=== PATIENT | female | born 1990 | race Caucasian/White ===

== ENCOUNTER 2017-03-20 14:11 | Emergency (ER) | payer BC, OTHER ==
[~2017-03-20] VITALS: Ht 170.2 cm; Wt 61.7 kg
[~2017-03-20 14:11] MED LIST: CYCL5TAB PO; NAPR550 PO; Z.0.NO CURRENT MEDS
[2017-03-20 14:33] VITALS: BP 129/88; PULSE 57; RESP 18; TEMP 98.2; O2SAT 99
[2017-03-20] MEDS ORDERED: FISHCAP4 PO (14:56)
[2017-03-20] MEDS ORDERED: MULT1TAB84 PO (14:56)
[2017-03-20] MEDS ORDERED: ONDANSETRON HCL 4 MG/2 ML VIAL IVP ONE (15:00)
[2017-03-20] MEDS ORDERED: FAMOTIDINE 20 MG/2 ML VIAL IV PUSH ONE (15:00)
[2017-03-20] MEDS ORDERED: SODIUM CHLOR 0.9% 1000 ML INJ 1,000 ML IV ONE ×2 (15:00)
[2017-03-20 15:17] LABS: AUTOMATED NEUTROPHIL # 9.9 TH/MM3 (1.8-7.7); BASOPHIL # 0.1 TH/MM3 (0-0.2); BASOPHIL % 1.1 % (0.0-2.0); HEMATOCRIT 41.3 % (35.0-46.0); LYMPHOCYTE # 0.7 TH/MM3 (1.0-4.8); MEAN CELL VOLUME 87.7 FL (80.0-100.0); MEAN CORPUSCULAR HEMOGLOBIN 29.5 PG (27.0-34.0); MEAN CORPUSCULAR HGB CONC 33.6 % (32.0-36.0); MONO % 1.8 % (0.0-8.0); NEUT % 91.1 % (16.0-70.0); PLATELET COUNT 206 TH/MM3 (150-450); RED BLOOD COUNT 4.71 MIL/MM3 (4.00-5.30); RED CELL DISTRIBUTION WIDTH 11.5 % (11.6-17.2); WHITE BLOOD COUNT 10.9 TH/MM3 (4.0-11.0)
--- NOTE | 2017-03-20 15:18 | PD ---
HPI Chief Complaint: GI Complaint Time Seen by Provider: 15:13 Travel History International Travel<30 days: No Contact w/Intl Traveler<30days: No Traveled to known affect area: No History of Present Illness HPI Patient is a 26-year-old female who presents to emergency room with complaints of nausea and vomiting. Patient reports that she drank heavily last night, reports that this morning, she has been unable to drink any fluids. Patient reports that she normally does not drink as much she did last night. Patient reports that everything she drinks, she throws up. Patient denies any fevers or chills, denies any cough or congestion. Patient reports that she does feel dehydrated. PFSH Past Medical History Medical History: Denies Significant Hx Immunizations Current: Yes ?: Not LMP: 1 week ago Past Surgical History Other Surgery: Yes (BREAST IMPLANTS) Social History Alcohol Use: Yes (DRANK "A LOT" LAST NIGHT ) Tobacco Use: No Substance Use: No Allergies-Medications (Allergen,Severity, Reaction): Coded Allergies: Augmentin (Verified Allergy, Mild, 03/20/17) Reported Meds & Prescriptions Reported Meds & Active Scripts Active Zofran Odt (Ondansetron Odt) 4 Mg Tab 4 Mg SL Q6HR PRN Macrobid (Nitrofurantoin Monoh/Nitrofur Macro) 100 Mg Cap 100 Mg PO BID 10 Days Reported Fish Oil + D3 (Fish Oil-Cholecalciferol) 1,200-1,000 Mg-Unit Cap 1 Cap PO DAILY Multivitamin Adults (Multiple Vitamins W/ Minerals) 1 Tab 1 Tab PO DAILY Review of Systems General / Constitutional: No: Fever Eyes: No: Visual changes HENT: No: Headaches Cardiovascular: No: Chest Pain or Discomfort Respiratory: No: Shortness of Breath Gastrointestinal: Positive: Nausea, Vomiting, No: Abdominal Pain Genitourinary: No: Dysuria Musculoskeletal: No: Pain Skin: No Rash Neurologic: No: Weakness Psychiatric: No: Depression Endocrine: No: Polydipsia Hematologic/Lymphatic: No: Easy Bruising Physical Exam Narrative GENERAL: No acute distress, nontoxic SKIN: Focused skin assessment warm/dry. HEAD: Atraumatic. Normocephalic. EYES: Pupils equal and round. No scleral icterus. No injection or drainage. ENT: No nasal bleeding or discharge. Mucous membranes pink and moist. NECK: Trachea midline. No JVD. CARDIOVASCULAR: Regular rate and rhythm. No murmur appreciated. RESPIRATORY: No accessory muscle use. Clear to auscultation. Breath sounds equal bilaterally. GASTROINTESTINAL: Abdomen soft, non-tender, nondistended. Hepatic and splenic margins not palpable. MUSCULOSKELETAL: No obvious deformities. No clubbing. No cyanosis. No edema. NEUROLOGICAL: Awake and alert. Normal speech. PSYCHIATRIC: Appropriate mood and affect; insight and judgment normal. Data Data Last Documented VS Vital Signs Date Time Temp Pulse Resp B/P Pulse Ox O2 Delivery O2 Flow Rate FiO2 03/20/17 14:33 98.2 57 18 129/88 99 Orders Complete Blood Count With Diff (03/20/17 14:58) Comprehensive Metabolic Panel (03/20/17 14:58) Urinalysis - C+S If Indicated (03/20/17 14:58) Iv Access Insert/Monitor (03/20/17 14:58) Drug Screen, Random Urine (03/20/17 14:58) Alcohol (Ethanol) (03/20/17 14:58) Ed Urine Pregnancytest Poc (03/20/17 14:58) Sodium Chlor 0.9% 1000 Ml Inj (Ns 1000 M (03/20/17 15:00) Sodium Chlor 0.9% 1000 Ml Inj (Ns 1000 M (03/20/17 15:00) Ondansetron Inj (Zofran Inj) (03/20/17 15:00) Famotidine Inj (Pepcid Inj) (03/20/17 15:00) Urine Culture (03/20/17 16:05) Ceftriaxone Inj (Rocephin Inj) (03/20/17 17:00) Ondansetron Inj (Zofran Inj) (03/20/17 17:15) Labs Laboratory Tests Test 03/20/17 03/20/17 15:00 16:05 White Blood Count 10.9 TH/MM3 Red Blood Count 4.71 MIL/MM3 Hemoglobin 13.9 GM/DL Hematocrit 41.3 % Mean Corpuscular Volume 87.7 FL Mean Corpuscular Hemoglobin 29.5 PG Mean Corpuscular Hemoglobin 33.6 % Concent Red Cell Distribution Width 11.5 % Platelet Count 206 TH/MM3 Mean Platelet Volume 8.2 FL Neutrophils (%) (Auto) 91.1 % Lymphocytes (%) (Auto) 6.0 % Monocytes (%) (Auto) 1.8 % Eosinophils (%) (Auto) 0.0 % Basophils (%) (Auto) 1.1 % Neutrophils # (Auto) 9.9 TH/MM3 Lymphocytes # (Auto) 0.7 TH/MM3 Monocytes # (Auto) 0.2 TH/MM3 Eosinophils # (Auto) 0.0 TH/MM3 Basophils # (Auto) 0.1 TH/MM3 CBC Comment AUTO DIFF Differential Comment AUTO DIFF CONFIRMED Sodium Level 140 MEQ/L Potassium Level 3.8 MEQ/L Chloride Level 105 MEQ/L Carbon Dioxide Level 24.1 MEQ/L Anion Gap 11 MEQ/L Blood Urea Nitrogen 10 MG/DL Creatinine 0.84 MG/DL Estimat Glomerular Filtration 83 ML/MIN Rate Random Glucose 130 MG/DL Calcium Level 9.5 MG/DL Total Bilirubin 0.4 MG/DL Aspartate Amino Transf 30 U/L (AST/SGOT) Alanine Aminotransferase 39 U/L (ALT/SGPT) Alkaline Phosphatase 66 U/L Total Protein 8.3 GM/DL Albumin 4.2 GM/DL Ethyl Alcohol Level LESS THAN 3 MG/DL Urine Color YELLOW Urine Turbidity HAZY Urine pH 8.5 Urine Specific [place] 1.025 Urine Protein 30 mg/dL Urine Glucose (UA) NEG mg/dL Urine Ketones 80 OR GREATER mg/dL Urine Occult Blood NEG Urine Nitrite NEG Urine Bilirubin NEG Urine Leukocyte Esterase SMALL Urine RBC 4-9 /hpf Urine WBC 100-200 /hpf Urine Squamous Epithelial > 8 /hpf Cells Urine Bacteria FEW /hpf Urine Mucus MOD /lpf Microscopic Urinalysis Comment CULTURE INDICATED Urine Opiates Screen NEG Urine Barbiturates Screen NEG Urine Amphetamines Screen NEG Urine Benzodiazepines Screen NEG Urine Cocaine Screen NEG Urine Cannabinoids Screen NEG [facility] Medical Decision Making Medical Screen Exam Complete: Yes Emergency Medical Condition: Yes Interpretation(s) Vital Signs Date Time Temp Pulse Resp B/P Pulse Ox O2 Delivery O2 Flow Rate FiO2 03/20/17 14:33 98.2 57 18 129/88 99 Differential Diagnosis Electrolyte abnormality, dehydration, alcohol poisoning Narrative Course Patient is a 26-year-old female who presents to emergency room with complaints of nausea and vomiting after a night of binge drinking. Reports that she has not been able to keep down any food or fluids all day. Patient reports that she feels dehydrated. Overall, patient is nontoxic and evaluation. Plan to obtain IV, will give IV fluids as well as antiemetics. We'll monitor patient CBC & BMP Diagram 03/20/17 15:00 Patient reevaluated, patient feeling much better at this time. Reviewed all labs and all studies with patient detail. Signs and symptoms of when to return to emergency room was reviewed patient in detail. Diagnosis Primary Impression: Nausea & vomiting Qualified Code: R11.2 - Non-intractable vomiting with nausea, unspecified vomiting type Additional Impressions: UTI (urinary tract infection) Qualified Code: N30.01 - Acute cystitis with hematuria Dehydration Patient Instructions: General Instructions Additional Instructions: Please stop with your primary care doctor Return to the emergency room as needed Please take all antibiotics prescribed Med/Other Pt SpecificInfo: Prescription(s) given Scripts Ondansetron Odt (Zofran Odt)4 Mg Tab4 Mg SL Q6HR PRN (Nausea/Vomiting) #30 TAB Ref 0 Prov:Ana Quinteros DO 03/20/17 Nitrofurantoin Monohydrate Macrocrystals (Macrobid)100 Mg [id number] Mg PO BID 10 Days Ref 0 Prov:Ana Quinteros DO 03/20/17 Disposition: 01 DISCHARGE HOME Condition: Stable Ana Quinteros DO Mar 20, 2017 15:18
[2017-03-20 15:20] LABS: CHLORIDE 105 MEQ/L (98-107); POTASSIUM 3.8 MEQ/L (3.5-5.1); SODIUM (NA) 140 MEQ/L (136-145)
[2017-03-20 15:21] LABS: HEMO FLAGS AUTO DIFF
[2017-03-20 15:24] LABS: ANION GAP 11 MEQ/L (5-15); BICARBONATE 24.1 MEQ/L (21.0-32.0); BLOOD UREA NITROGEN 10 MG/DL (7-18)
[2017-03-20 15:27] LABS: ALT (GPT) 39 U/L (10-53); AST (GOT) 30 U/L (15-37); GLOMERULAR FILTRATION RATE 83 ML/MIN (>89)
[2017-03-20 15:28] LABS: TOTAL BILIRUBIN ADULT 0.4 MG/DL (0.2-1.0)
[2017-03-20 15:30] LABS: ALKALINE PHOSPHATASE 66 U/L (45-117)
[2017-03-20 16:35] LABS: BLOOD, URINE NEG (NEG); GLUCOSE,URINE NEG (NEG); NITRITE,URINE NEG (NEG); PH, URINE 8.5 (5.0-8.5)
[2017-03-20 16:35] LABS: SCAN/DIFF AUTO DIFF CONFIRMED
[2017-03-20 16:41] LABS: KETONE, URINE 80 OR GREATER mg/dL (NEG)
[2017-03-20 16:42] LABS: URINE COLOR YELLOW (YELLW/STRAW)
[2017-03-20 16:43] LABS: MUCUS URINE MOD /lpf (OCC); WBC, URINE 100-200 /hpf (0-5)
[2017-03-20 16:44] LABS: AMPHETAMINE, URINE NEG (NEG); BACTERIA, URINE FEW /hpf; COMMENT (UR) CULTURE INDICATED; CULTURE IF INDICATED CULTURE INDICATED; SQUAMOUS EPITHELIAL CELL URINE > 8 /hpf (0-5)
[2017-03-20 16:45] LABS: BARBITURATES, URINE NEG (NEG)
[2017-03-20 16:48] LABS: COCAINE, URINE NEG (NEG)
[2017-03-20] MEDS ORDERED: MACR100C2 PO (16:52)
[2017-03-20] MEDS ORDERED: ZOFR4TAB3 SL (16:52)
[2017-03-20] MEDS ORDERED: cefTRIAXone INJ 1,000 MG in SODIUM CHLORIDE 0.9% INJ 100 ML IV ONE (17:00)
[2017-03-20] MEDS ORDERED: ONDANSETRON HCL 4 MG/2 ML VIAL IV PUSH ONE (17:15)
[2017-03-20 17:58] VITALS: BP 115/70
== END 2017-03-20 17:59 | disposition home or self-care (01) ==
LOC: PHED 14:11
DX: E86.0 Dehydration (principal); N39.0 Urinary tract infection, site not specified; R11.2 Nausea with vomiting, unspecified
CPT/HCPCS: 80053; 80307; 81001; 84703; 85025; 87086; 96361; 96374; 96375; 96376; 99284; J0696; J2405; J7030